=== PATIENT | female | born 2005 | race Caucasian/White ===

== ENCOUNTER 2025-02-04 16:43 | Emergency (ER) | payer BC, SELFPAY ==
--- NOTE | ~2025-02-04 | XR_ITS ---
EXAMINATION: XR chest 2V, 02/04/2025 17:30 INSECT CONTROL INSPECTOR HISTORY: cough, wheezing x2 days COMPARISON: No comparisons available. Technique: 2 views obtained. Findings: The lungs are clear, no effusion. No pneumothorax. Heart is normal size. Mediastinal and hilar contours are within normal limits. Bony thorax no acute abnormality. Impression: No acute cardiopulmonary abnormality. Reviewed, dictated and finalized at location P. CT CONTROL INSPECTOR Impression: No acute cardiopulmonary abnormality.
[2025-02-04 16:59] VITALS: BP 111/72; PULSE 109; RESP 16; TEMP 36.4; O2SAT 98
[2025-02-04 17:25] LABS: EDSTREPNEGPOS1 Negative (Negative)
--- NOTE | 2025-02-04 17:26 | ED.URI ---
HPI - URI/Sore Throat General Chief Complaint: Upper Respiratory Infection Stated Complaint: Sinus Infection Symptoms Time Seen by Provider: 02/04/25 17:11 Source: patient, family (Mother) and RN notes reviewed Mode of arrival: ambulatory Limitations: no limitations History of Present Illness HPI Narrative: Mother presents 19-year-old female patient with history of seizure disorder complaining of 2 week history of rhinorrhea and 2 day history of postnasal drip, nasal congestion, cough. Denies shortness of breath, fever, headache, chest pain. She tried in albuterol nebulizer treatment at home a few hours prior to arrival with very mild improvement. No OTC treatment prior to arrival other than vitamins she normally takes daily. Patient denies history of asthma, but has the albuterol that she uses in times of illness. Related Data Home Medications ?Medication ?Instructions ?Recorded ?Confirmed ?Last Taken ?Type cenobamate 150 mg tablet (Xcopri) mg 02/04/25 Unknown History clobazam 10 mg tablet mg 02/04/25 Unknown History levetiracetam 750 mg tablet mg PO 02/04/25 Unknown History norethindrone 1 mg-ethinyl tablet 02/04/25 Unknown History estradiol 20 mcg (21)-iron 75 mg (7) tablet (Blisovi Fe 04/06 (28)) Allergies Allergy/AdvReac Type Severity Reaction Status Date / Time No Known Allergies Allergy Verified 02/04/25 17:02 [facility] Past Medical History Medical History (Updated 02/04/25 @ 18:18 by Sabrina Marshall, SUPERVISOR [employer], DIAL LATHE OPERATOR) Seizure disorder Comments At time of signature, I have reviewed and agree with nursing past medical, surgical, social and family history unless otherwise noted. Please see nursing chart for further information. There is no relevant family history pertinent to the presenting complaint Exam Narrative: GENERAL: Mildly ill-appearing, well-nourished, and in no acute distress. HEAD: Normocephalic, atraumatic. EYES: EOMI. No redness or drainage. Conjunctivae normal. ENT: Mucous membranes pink and moist. Nares clear. No rhinorrhea. TMs normal bilaterally. Throat mildly erythematous with 3+ tonsils without exudate. Uvula midline. NECK: Normal AROM. Supple. No lymphadenopathy. CHEST: No respiratory distress. Expiratory wheezing throughout. HEART: Regular rhythm. No murmur appreciated. + tachycardia EXTREMITIES: Normal range of motion. No edema. SKIN: Warm, dry, no rash. Capillary refill normal. Normal skin turgor. NEURO: No focal deficits. Alert and oriented x3. Gait steady. PSYCH: Normal affect. No signs of depression or anxiety. Course Course Level of Care: Express Care Visit Vital Signs Vital signs: Vital Signs Temperature 97.5 F L 02/04/25 16:59 Pulse Rate 109 H 02/04/25 16:59 Respiratory Rate 16 02/04/25 16:59 Blood Pressure 111/72 02/04/25 16:59 Pulse Oximetry 98 02/04/25 16:59 Temperature 97.5 F L 02/04/25 16:59 Pulse Rate 102 H 02/04/25 18:05 Respiratory Rate 16 02/04/25 18:05 Blood Pressure 111/72 02/04/25 16:59 Pulse Oximetry 97 02/04/25 18:05 Reviewed MDM - URI/Sore Throat MDM Narrative Medical decision making narrative: Mother presents 19-year-old female patient with history of seizure disorder complaining of 2 week history of rhinorrhea and 2 day history of postnasal drip, nasal congestion, cough. Denies shortness of breath, fever, headache, chest pain. She tried in albuterol nebulizer treatment at home a few hours prior to arrival with very mild improvement. No OTC treatment prior to arrival other than vitamins she normally takes daily. Patient denies history of asthma, but has the albuterol that she uses in times of illness. Upon exam, patient is mildly ill appearing with expiratory wheezing throughout. DuoNeb administered, which patient states did help improve her symptoms. Wheezing has moderately improved per auscultation. Chest x-ray negative for pneumonia. Patient will be treated for bronchitis with prednisone, Tessalon Perles, and DuoNeb fluid. Patient agrees with plan. Anticipatory guidance given. Differential Diagnosis Differential diagnosis: Likely upper respiratory infection, viral infection, bronchitis and other (Pneumonia) Lab Data Attestation: I reviewed the patient's lab results. Labs: Lab Results 02/04/25 Range/Units 16:53 POC Grp A Strep Screen Negative (Negative) Critical Care Time Critical Care Time Critical Care Time: No Discharge Plan Discharge Clinical Impression: Bronchitis Patient Disposition: Home Condition: Stable Instructions: Acute Bronchitis (ED) Additional Instructions: Take all medications as prescribed. Rest and stay hydrated. Follow-up with your PCP next week if symptoms are not improving. Go to the ER immediately if symptoms worsen. Patient Language: [place]er Prescriptions: New benzonatate 200 mg capsule 200 mg PO TID PRN (Reason: cough) Qty: 20 0RF prednisone 50 mg tablet 50 mg PO DAILY 5 Days Qty: 5 0RF ipratropium-albuterol 0.5 mg-3 mg(2.5 mg base)/3 mL solution for nebulization 3 ml inhalation Q4-6H PRN (Reason: shortness of breath or wheezing) Qty: 90 0RF No Action norethindrone-e.estradiol-iron [[place]isovi Fe 04/06 (28)] 1 mg-20 mcg (21)/75 mg (7) tablet levetiracetam 750 mg tablet PO clobazam 10 mg tablet Xcopri 150 mg tablet Follow-up/Referrals: PHYSICIAN,INDUSTRIAL TECHNOLOGIST [Primary Care Provider, Internal Medicine] Time of Disposition: 18:19
[2025-02-04] MEDS: IPRATROPIUM BR 0.02% INH SOLN 0.5 MG/2.5 ML VIAL INHALATION (17:41)
[2025-02-04] MEDS: ALBUTEROL SULFATE NEB 2.5 MG/3 ML INH INHALATION (17:41)
[2025-02-04 18:05] VITALS: PULSE 102; PULSE 109; RESP 16; O2SAT 94; O2SAT 97
== END 2025-02-04 18:25 | disposition home or self-care (01) ==
PROVIDERS: Emergency Provider Nurse Practitioner
DX: J40 Bronchitis, not specified as acute or chronic (principal); Z79.899 Other long term (current) drug therapy
CPT/HCPCS: 71046; 87081; 87880; 94640; 99213; G0463